=== PATIENT | male | born 1990 | race Caucasian/White ===

== ENCOUNTER 2017-02-17 22:42 | Emergency (ER) | payer SELFPAY ==
[2017-02-17 22:49] VITALS: BP 118/74; PULSE 89; TEMP 98.5; BMI 24.7
[2017-02-17] MEDS ORDERED: IBUPROFEN 600 MG TABLET (FP) PO ONE ×2 (23:41→23:43)
[2017-02-17] MEDS ORDERED: DIPHTH,PERTUSS(ACELL),TET 0.5 ML DISP.SYRIN IM ONE (23:42)
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
== END 2017-02-18 00:50 | disposition home or self-care (01) ==
LOC: SUPCPDRO 22:42 → JER 22:42
PROC: 3E0234Z Introduction of Serum, Toxoid and Vaccine into Muscle, Percutaneous Approach (ICD-10-PCS; principal; 2017-02-17)
DX: S89.81XA Other specified injuries of right lower leg, initial encounter (principal); V13.4XXA Pedal cycle driver injured in collision with car, pick-up truck or van in traffic accident, initial encounter; Y92.414 Local residential or business street as the place of occurrence of the external cause; Y93.55 Activity, bike riding; Y99.8 Other external cause status
CPT/HCPCS: 73562-TC-RT; 90715; 99283-25

== ENCOUNTER 2022-09-02 17:45 | Emergency (ER) | payer SELFPAY ==
[2022-09-02 17:57] VITALS: BP 133/88; PULSE 63; RESP 18; TEMP 98.6; BMI 26.5
== END 2022-09-02 20:17 | disposition home or self-care (01) ==
LOC: JERFT 17:45
DX: M25.572 Pain in left ankle and joints of left foot (principal)
CPT/HCPCS: 73610-TC-LT-FY; 73630-TC-LT; 99283-25